=== PATIENT | female | born 1955 | race Caucasian/White ===

== ENCOUNTER 2016-11-26 13:57 | Emergency (ER) | payer BC ==
[2016-11-26] MEDS ORDERED: MELOXICAM 7.5 MG TABLET PO STA (15:34)
== END 2016-11-26 16:16 | disposition home or self-care (01) ==
DX: M18.12 Unilateral primary osteoarthritis of first carpometacarpal joint, left hand (principal); R03.0 Elevated blood-pressure reading, without diagnosis of hypertension
CPT/HCPCS: 29125; 36415; 73130; 84550; 99283; A9270